=== PATIENT | male | born 1970 | race Caucasian/White ===

== ENCOUNTER 2022-08-03 06:33 | Day surgery (SDC) | payer OTHER ==
[~2022-08-03] VITALS: Ht 193 cm; Wt 117.2 kg
[~2022-08-03 06:33] MED LIST: Acyclovir400 MG PO; FISH OIL PO; IBUP200 PO; MULVITA PO
--- NOTE | 2022-08-03 09:55 | NUR ---
Ambulatory in Day Surgery. Discharge instructions reviewed with patient. Patient verbalizes understanding. Copy given to patient to take home. Dressing to procedure site clean, dry, intact with no visible drainage, swelling, erythema or bruising noted. Discharged via wheelchair to private car for ride home.
== END 2022-08-03 22:51 | disposition home or self-care (01) ==
LOC: ORSCMMR 06:33 → ORD 07:30 → ORSCMMR 07:30
PROVIDERS: Surgery
PROC: 3E0M05Z Introduction of Adhesion Barrier into Peritoneal Cavity, Open Approach (ICD-10-PCS; principal; 2022-08-03 08:00)
PROC: 0WUF0JZ Supplement Abdominal Wall with Synthetic Substitute, Open Approach (ICD-10-PCS; principal; 2022-08-03 08:00)
DX: K42.0 Umbilical hernia with obstruction, without gangrene (principal); Z87.891 Personal history of nicotine dependence; K76.0 Fatty (change of) liver, not elsewhere classified; Z79.899 Other long term (current) drug therapy
CPT/HCPCS: C1781; J0690; J1100; J1885; J2250; J2405; J2704; J2795; J3010; J7120